=== PATIENT | male | born 1990 | race Caucasian/White ===

== ENCOUNTER 2022-06-10 23:56 | Emergency (ER) | payer OTHER, SELFPAY ==
[2022-06-11] VITALS (9 sets, daily range): BP systolic 110–147; BP diastolic 74–92; PULSE 72–80; RESP 18; TEMP 37.3; O2SAT 93–99; BMI 43.0
--- NOTE | 2022-06-11 00:34 | DI.US.S_ITS ---
PROCEDURE: US ABDOMEN LIMITED INDICATIONS: RUQ US eval for GB pathology TECHNIQUE: Real-time focused scanning was performed of the abdomen, with image documentation. COMPARISON: None. FINDINGS: Evaluation limited by body habitus. The liver demonstrates increased no focal mass lesions. There is increased parenchymal echogenicity compatible with fatty infiltration. The gallbladder demonstrates biliary sludge and echogenic gallstones. Gallbladder wall thickness measures up to 0.3 cm, at the upper limits of normal. No pericholecystic fluid. No intra or extrahepatic biliary ductal dilatation. Visualized pancreas appears unremarkable sonographically. IMPRESSION: 1. Cholelithiasis with borderline wall thickening but no pericholecystic fluid. The findings are equivocal for acute cholecystitis and correlation is recommended clinically. Dictated by: Augusto Matos M.D. on 06/11/2022 at 2:37 Approved by: Augusto Matos M.D. on 06/11/2022 at 2:39
--- NOTE | 2022-06-11 00:34 | ED_ITS ---
HPI - General Adult General Chief complaint: Abdominal Pain Stated complaint: pain in rt abd moving to back, vomiting Time Seen by Provider: 06/11/22 00:07 Source: patient Mode of arrival: Ambulatory Limitations: no limitations History of Present Illness HPI narrative: Patient is a 32-year-old male who is here for evaluation of right upper quadrant abdominal pain that started last evening. No fevers. He has vomited. It has improved somewhat since the onset. It did start after he was eating. Denies any fevers. No change in bowel habits. No urinary symptoms. Has had his appendix removed no other abdominal surgeries. Has never had symptoms like this in the past. Related Data Allergies Allergy/AdvReac Type Severity Reaction Status Date / Time cephalexin [From Keflex] Allergy Verified 06/11/22 00:07 Review of Systems Constitutional Constitutional: Reports system reviewed and no additional complaints, except as documented Gastrointestinal Gastrointestinal: Reports system reviewed and no additional complaints, except as documented Genitourinary Genitourinary: Reports system reviewed and no additional complaints, except as documented Integumentary/Breasts Skin/Breast: Reports system reviewed and no additional complaints, except as documented Hematologic/Lymphatic On Anticoagulants: No Patient History Surgical History Hx of appendectomy Social History Smoking Status: Never smoker Smoking Status: Never smoker alcohol intake frequency: 0-2 drinks per day Substance Use Type: does not use Exam Initial Vital Signs Initial Vital Signs: Vital Signs Pulse Rate 80 06/11/22 00:04 Blood Pressure 147/89 H 06/11/22 00:04 Pulse Oximetry 98 06/11/22 00:04 HENTN Head: normal to inspection and normocephalic Resp Effort & Inspection: normal respiratory effort Auscultation: clear to auscultation bilaterally Cardio Rate: regular rate GI Inspection: normal to inspection Palpation: soft, No guarding and tender (Right upper quadrant with positive Kearney's sign) Back/Spine/Pelvis Back: No CVA tenderness Skin General: no rashes or lesions noted Neuro General: patient alert, patient awake and moves all extremities Extrem General: normal to inspection and capillary refill normal Course Orders Ordered: ED Orders 06/11/22 00:32 Complete Blood Count AUTO DIFF Stat Comprehensive Metabolic Panel Stat Lipase Stat 06/11/22 00:34 US abdomen limited Stat Discontinued Medications Hydrocodone Bitart/Acetaminophen (Hydrocodone/Acet 5/325 Prepack) 1 bottle MISC SEEINSTR ONE Stop: 06/11/22 02:49 Last Admin: 06/11/22 03:13 Dose: 1 bottle Ondansetron HCl (Ondansetron 4 Mg Odt) 4 mg PO NOW PRN PRN Reason: Nausea And Vomiting Ondansetron HCl (Ondansetron 4 Mg/2 Ml Inj) 4 mg IV NOW PRN PRN Reason: Nausea And Vomiting Ondansetron HCl (Ondansetron 4 Mg Odt Prepack) 1 bottle MISC SEEINSTR ONE Stop: 06/11/22 02:49 Last Admin: 06/11/22 03:13 Dose: 1 bottle Vital Signs Vital signs: Vital Signs - 8 hr 06/11/22 00:07 06/11/22 00:04 06/11/22 00:04 Temperature 99.1 F Pulse Rate 79 80 Respiratory Rate 18 Blood Pressure 147/84 H 147/89 H Pulse Oximetry 98 98 Oxygen Delivery Method Room Air 06/11/22 00:51 06/11/22 00:52 06/11/22 00:52 Temperature Pulse Rate 74 Respiratory Rate Blood Pressure 140/89 Pulse Oximetry 99 98 Oxygen Delivery Method 06/11/22 01:00 06/11/22 01:00 06/11/22 01:30 Temperature Pulse Rate 74 Respiratory Rate Blood Pressure 143/92 H 110/79 Pulse Oximetry 97 Oxygen Delivery Method 06/11/22 01:30 06/11/22 02:00 06/11/22 02:00 Temperature Pulse Rate 72 78 Respiratory Rate Blood Pressure 114/75 Pulse Oximetry 96 95 Oxygen Delivery Method 06/11/22 02:30 06/11/22 03:00 06/11/22 03:00 Temperature Pulse Rate 80 75 Respiratory Rate Blood Pressure 129/74 Pulse Oximetry 93 94 Oxygen Delivery Method Room Air Medical Decision Making Lab Data Lab results reviewed: Yes I reviewed the patient's lab results. 06/11/22 00:32 06/11/22 00:32 Labs: Lab Results 06/11/22 06/11/22 Range/Units 00:32 00:32 WBC 11.8 H (4.5-11.0) X10^3/uL RBC 4.94 (4.5-5.9) X10^6/uL Hgb 14.9 (13.5-17.5) g/dL Hct 43.7 (41-53) % MCV 88.4 (80-100) fL MCH 30.1 (26-34) PG MCHC 34.1 (30-36) % RDW 13.3 (11.6-14.8) % Plt Count 267 (150-400) X10^3/uL Neut % (Auto) 72.3 (50-75) % Lymph % (Auto) 18.9 L (25-40) % [place] % (Auto) 5.1 (3-14) % Eos % (Auto) 2.7 (2-4) % Baso % (Auto) 1.0 (0-2) % Neut # (Auto) 8500 H (2843-2255) /uL Lymph # (Auto) 2200 (8254-6932) /uL [place] # (Auto) 600 (0-900) /uL Eos # (Auto) 300 (0-450) /uL Baso # (Auto) 100 (0-100) /uL Sodium 139 (137-145) mmol/L Potassium 3.9 (3.4-5.1) mmol/L Chloride 103 (98-107) mmol/L Carbon Dioxide 27 (22-32) mmol/L BUN 13 (9-20) mg/dL Creatinine 0.74 (0.66-1.25) mg/dL Estimated GFR > 60 (>60) mL/min BUN/Creatinine Ratio 17.6 (6-22) Glucose 132 H (70-100) mg/dL Calcium 9.2 (8.4-10.2) mg/dL Total Bilirubin 0.5 (0.2-1.3) mg/dL AST 41 (17-59) IU/L ALT 80 H (<50) IU/L Alkaline Phosphatase 96 (38-126) U/L Total Protein 8.0 (6.3-8.2) g/dL Albumin 4.6 (3.5-5.0) g/dL Globulin 3.4 (1.7-4.1) g/dL Albumin/Globulin Ratio 1.4 (1.0-2.8) Lipase 54 (23-300) U/L Urine Dip Bedside Urine Glucose Negative Bedside Urine Bilirubin - Negative Bedside Urine Ketone - Negative Urine Specific [place] 1.030 Bedside Urine Occult Blood - Negative Bedside Urine pH 6.0 Bedside Urine Protein - Negative Bedside Urine Urobilinogen - Negative Bedside Urine Nitrite - Negative Bedside Urine Leukocytes - Negative Esterase Point of care testing: Urine Dip Bedside Urine Glucose Negative Bedside Urine Bilirubin - Negative Bedside Urine Ketone - Negative Urine Specific [place] 1.030 Bedside Urine Occult Blood - Negative Bedside Urine pH 6.0 Bedside Urine Protein - Negative Bedside Urine Urobilinogen - Negative Bedside Urine Nitrite - Negative Bedside Urine Leukocytes - Negative Esterase Imaging Data US - abdomen: Radiologist's Impression: PROCEDURE: US ABDOMEN LIMITED ? INDICATIONS:? RUQ US eval for GB pathology ? TECHNIQUE:? Real-time focused scanning was performed of the abdomen, with image documentation.? ? COMPARISON:? None. ? FINDINGS:? ? Evaluation limited by body habitus. ? The liver demonstrates increased no focal mass lesions.? There is increased parenchymal echogenicity compatible with fatty infiltration. ? The gallbladder demonstrates biliary sludge and echogenic gallstones.? Gallbladder wall thickness measures up to 0.3 cm, at the upper limits of normal.? No pericholecystic fluid. ? No intra or extrahepatic biliary ductal dilatation. ? Visualized pancreas appears unremarkable sonographically. ? ? IMPRESSION:? ? 1. Cholelithiasis with borderline wall thickening but no pericholecystic fluid.? The findings are equivocal for acute cholecystitis and correlation is recommended clinically. MDM Narrative Medical decision making narrative: Patient does have an elevation in his ALT but his lipase and AST are unrem arkable. His physical exam is consistent with biliary colic. His right upper quadrant ultrasound does show cholelithiasis without definitive evidence of acute cholecystitis. Patient states that his symptoms have now completely resolved. Will discharge patient home with medications for symptom control and instructions to follow-up with general surgery. He was given return precautions and follow-up instructions. He expressed understanding and agreement. Discharge Plan Departure Patient Disposition: Home Clinical Impression: Cholelithiasis Instructions: Gallstones (Alternative Therapy), DI for Gallstones Activity Restrictions/Additional Instructions: I do recommend that you eat a bland diet for the next couple days. Contact the general surgery department at the number provided below for follow-up. Return to the emergency department for any new or worsening symptoms. Referrals: Cedrick Mosher MD [Physician] - Stand Alone Forms: Patient Portal/API
[2022-06-11 00:44] LABS: Add Manual Diff / Slide Review NO; Basophils Absolute Auto 100 /uL (0-100); Eosinophils Absolute Auto 300 /uL (0-450); Eosinophils Percent Auto 2.7 % (2-4); Hematocrit 43.7 % (41-53); Hemoglobin 14.9 g/dL (13.5-17.5); Lymphocytes Absolute Auto 2200 /uL (1100-4500); Lymphocytes Percent Auto 18.9 % (25-40); Mean Corpuscular HGB Conc 34.1 % (30-36); Mean Corpuscular Hemoglobin 30.1 PG (26-34); Mean Corpuscular Volume 88.4 fL (80-100); Monocytes Absolute Auto 600 /uL (0-900); Monocytes Percent Auto 5.1 % (3-14); Neutrophils Absolute Auto 8500 /uL (1500-7000); Neutrophils Percent Auto 72.3 % (50-75); Platelet Count 267 X10^3/uL (150-400); Red Blood Cell Count 4.94 X10^6/uL (4.5-5.9); Red Cell Distribution Width 13.3 % (11.6-14.8); White Blood Cell Count 11.8 X10^3/uL (4.5-11.0)
[2022-06-11 00:55] LABS: Alanine Aminotransferase 80 IU/L (<50); Albumin 4.6 g/dL (3.5-5.0); Albumin Globulin Ratio 1.4 (1.0-2.8); Alkaline Phosphatase 96 U/L (38-126); Aspartate Aminotransferase 41 IU/L (17-59); BUN Creatinine Ratio 17.6 (6-22); Bilirubin Total 0.5 mg/dL (0.2-1.3); Blood Urea Nitrogen 13 mg/dL (9-20); Calcium 9.2 mg/dL (8.4-10.2); Carbon Dioxide 27 mmol/L (22-32); Chloride 103 mmol/L (98-107); Estimated Glomerular Filt Rate > 60 mL/min (>60); Globulin 3.4 g/dL (1.7-4.1); Glucose 132 mg/dL (70-100); HEMOLYSIS 25 (0-50); Lipase 54 U/L (23-300); Potassium 3.9 mmol/L (3.4-5.1); Sodium 139 mmol/L (137-145)
--- NOTE | 2022-06-11 01:05 | PC.NURSE ---
Pt declines zofran at this time.
[2022-06-11] MEDS: HYDROCODONE/ACET 5/325 PREPACK 1 BOTTLE MISC (03:13)
[2022-06-11] MEDS: ONDANSETRON 4 MG ODT PREPACK 1 BOTTLE MISC (03:13)
== END 2022-06-11 03:21 | disposition home or self-care (01) ==
PROVIDERS: Emergency Provider Emergency Medicine
DX: K80.20 Calculus of gallbladder without cholecystitis without obstruction (principal)
CPT/HCPCS: 36415; 76705; 80053; 81003; 83690; 85025; 99284

== ENCOUNTER 2023-11-16 08:01 | Emergency (ER) | payer OTHER, SELFPAY ==
[2023-11-16 08:13] VITALS: BP 140/96; PULSE 71; RESP 17; TEMP 36.6; O2SAT 100; BMI 38.7
--- NOTE | 2023-11-16 08:27 | ED.GENADULT ---
HPI - General Adult General Chief complaint: Abdominal Pain Stated complaint: Severe Upper stomach pain Time Seen by Provider: 11/16/23 08:09 Source: patient Mode of arrival: Ambulatory History of Present Illness HPI narrative: Patient is a 33-year-old male who was seen here by myself in the emergency department approximately 4 months ago for right upper quadrant abdominal pain. Was diagnosed with cholelithiasis. Had relatively unremarkable LFTs. Discharged home with instructions to change diet and also follow-up with general surgery. He states he was asymptomatic until about 1-2 months ago when he started to have recurrence of the symptoms specifically with eating. His current symptoms started last evening. Describes pain in his upper abdomen. Nausea but no vomiting. He has had quite a bit of weight loss over the past several months. No change in bowel habits. No urinary symptoms. No fevers. Related Data Home Medications Medication Instructions Recorded Confirmed pantoprazole 40 mg tablet,delayed 40 mg PO DAILY 11/16/23 11/16/23 release (Protonix) Previous Rx's Medication Instructions Recorded hydrocodone 5 mg-acetaminophen 325 1 tab PO Q4-6H PRN pain #14 tabs 11/16/23 mg tablet ondansetron 4 mg disintegrating 4 mg PO Q6H PRN nausea and 11/16/23 tablet vomiting #14 tabs Allergies Allergy/AdvReac Type Severity Reaction Status Date / Time cephalexin [From Keflex] Allergy Verified 11/16/23 08:23 Review of Systems Review of Systems Narrative: See HPI Patient History Surgical History Hx of appendectomy Social History Smoking Status: Never smoker Smoking Status: Never smoker alcohol intake frequency: a few times a week Substance Use Type: does not use Exam Initial Vital Signs Initial Vital Signs: Vital Signs Temperature 97.9 F 11/16/23 08:13 Pulse Rate 71 11/16/23 08:13 Respiratory Rate 17 11/16/23 08:13 Blood Pressure 140/96 H 11/16/23 08:13 Pulse Oximetry 100 11/16/23 08:13 Oxygen Delivery Method Room Air 11/16/23 08:13 Const General: cooperative, comfortable and No ill appearing HENID Head: normal to inspection and normocephalic Resp Effort & Inspection: normal respiratory effort Auscultation: clear to auscultation bilaterally Cardio Rate: regular rate Rhythm: regular rhythm GI Inspection: normal to inspection and non-distended Palpation: soft, No firm, No guarding and tender (Right upper quadrant) Skin General: no rashes or lesions noted Neuro General: patient alert, patient awake and moves all extremities Extrem General: normal to inspection Course Orders Ordered: ED Orders 11/16/23 08:25 Complete Blood Count AUTO DIFF Stat Comprehensive Metabolic Panel Stat Lipase Stat 11/16/23 08:27 US abdomen limited Stat Discontinued Medications Sodium Chloride (Normal Saline 0.9%) 1,000 mls @ 1,000 mls/hr IV BOLUS ONE Stop: 11/16/23 09:26 Last Infusion: 11/16/23 09:42 Dose: Infused Documented By: Admin: 11/16/23 08:53 Dose: 1,000 mls/hr Documented By: KATHI Ketorolac Tromethamine (Ketorolac 30 Mg/Ml Vial) 30 mg IV NOW ONE Stop: 11/16/23 08:28 Last Admin: 11/16/23 08:53 Dose: 30 mg Documented By: KATHI Ondansetron HCl (Ondansetron 4 Mg/2 Ml Inj) 4 mg IV NOW ONE Stop: 11/16/23 08:28 Last Admin: 11/16/23 08:53 Dose: 4 mg Documented By: KATHI Pantoprazole Sodium (Pantoprazole 40 Mg Vial) 40 mg IV NOW ONE Stop: 11/16/23 08:28 Last Admin: 11/16/23 08:53 Dose: 40 mg Documented By: KATHI Vital Signs Vital signs: Vital Signs - 8 hr 11/16/23 08:13 Temperature 97.9 F Pulse Rate 71 Respiratory Rate 17 Blood Pressure 140/96 H Pulse Oximetry 100 Oxygen Delivery Method Room Air Medical Decision Making Lab Data Lab results reviewed: Yes I reviewed the patient's lab results. 11/16/23 08:25 11/16/23 08:25 Labs: Lab Results 11/16/23 Range/Units 08:25 WBC 11.9 H (4.5-11.0) X10^3/uL RBC 5.04 (4.5-5.9) X10^6/uL Hgb 15.2 (13.5-17.5) g/dL Hct 44.8 (41-53) % MCV 88.9 (80-100) fL MCH 30.1 (26-34) PG MCHC 33.9 (30-36) % RDW 13.1 (11.6-14.8) % Plt Count 273 (150-400) X10^3/uL Neut % (Auto) 88.6 H (50-75) % Lymph % (Auto) 7.3 L (25-40) % [place] % (Auto) 2.8 L (3-14) % Eos % (Auto) 0.7 L (2-4) % Baso % (Auto) 0.6 (0-2) % Neut # (Auto) 87759 H (3658-3009) /uL Lymph # (Auto) 900 L (1164-9291) /uL [place] # (Auto) 300 (0-900) /uL Eos # (Auto) 100 (0-450) /uL Baso # (Auto) 100 (0-100) /uL Sodium 142 (137-145) mmol/L Potassium 4.1 (3.4-5.1) mmol/L Chloride 108 H (98-107) mmol/L Carbon Dioxide 25 (22-32) mmol/L BUN 14 (9-20) mg/dL Creatinine 0.84 (0.66-1.25) mg/dL Estimated GFR > 60 (>60) mL/min BUN/Creatinine Ratio 16.7 (6-22) Glucose 134 H (70-100) mg/dL Calcium 9.8 (8.4-10.2) mg/dL Total Bilirubin 0.6 (0.2-1.3) mg/dL AST 27 (17-59) IU/L ALT 41 (<50) IU/L Alkaline Phosphatase 101 (38-126) U/L Total Protein 8.1 (6.3-8.2) g/dL Albumin 4.8 (3.5-5.0) g/dL Globulin 3.3 (1.7-4.1) g/dL Albumin/Globulin Ratio 1.5 (1.0-2.8) Lipase 57 (23-300) U/L Imaging Data US - abdomen: Radiologist's Impression: PROCEDURE: US ABDOMEN LIMITED INDICATIONS: RUQ pain eval for GB pathology TECHNIQUE: Real-time scanning was performed of the abdominal and retroperitoneal organs, with image documentation. COMPARISON: [facility], US, US ABDOMEN LIMITED, 06/11/2022, 1:34. FINDINGS: Liver: The liver is diffusely hyperechoic without focal lesion. Liver length is not measured. Gallbladder: Gallbladder demonstrates diffuse fairly homogeneous internal echogenicity without wall thickening. [employer] reports at least 2 mobile subcentimeter stones within the sludge which are not well appreciated on the static images. A sonographic Kearney sign was not reported. Biliary ducts: There is no biliary ductal dilation. The common bile duct measures 4 mm in diameter. Pancreas: Visualized portions of the pancreas are sonographically normal. Miscellaneous: No free abdominal fluid. IMPRESSION: Gallbladder sludge without hellen cholecystitis. MDM Narrative Medical decision making narrative: He reports improvement of symptoms but not complete resolution after medications here in the ER. I do have high suspicion that this is biliary colic causing his symptoms given his history. His prior ultrasound shows stones now only sludge and I suspect that he has passed some of the stones. His bilirubin is normal here along with his LFTs. Discussed the case with Dr. Gomes on-call for General surgery. Plan will be to discharge patient home with nausea medication and pain medication. Recommended bland diet. Dr. Gomes will have the general surgery office contact the patient to the beginning of next week to discuss surgical intervention early next week. When patient was given return precautions. She expressed understanding and agreement. Discharge Plan Departure Patient Disposition: Home Clinical Impression: Abdominal pain, Biliary colic Instructions: DI for Biliary Colic Activity Restrictions/Additional Instructions: Don't eat or drink anything after midnight Saturday nit. Office will can you Saturday morning with the possibility of taking your gallbladder on Saturday. Recommend a bland diet. He was the pain medication and nausea medication as needed. Anticipate a call from the general surgery office on Saturday for surgery early next week. Return to the emergency department for new symptoms. Prescriptions: New hydrocodone-acetaminophen 5-325 mg tablet 1 tab PO Q4-6H PRN (Reason: pain) Qty: 14 0RF ondansetron 4 mg tablet,disintegrating 4 mg PO Q6H PRN (Reason: nausea and vomiting) Qty: 14 0RF No Action pantoprazole [Protonix] 40 mg Tablet,Delayed Release (Dr/Ec) 40 mg PO DAILY Referrals: Hannah Gomes MD [Physician] - Stand Alone Forms: Patient Portal/API
[2023-11-16 08:45] LABS: Add Manual Diff / Slide Review NO; Basophils Absolute Auto 100 /uL (0-100); Basophils Percent Auto 0.6 % (0-2); Eosinophils Absolute Auto 100 /uL (0-450); Eosinophils Percent Auto 0.7 % (2-4); Hematocrit 44.8 % (41-53); Hemoglobin 15.2 g/dL (13.5-17.5); Lymphocytes Absolute Auto 900 /uL (1100-4500); Lymphocytes Percent Auto 7.3 % (25-40); Mean Corpuscular HGB Conc 33.9 % (30-36); Mean Corpuscular Hemoglobin 30.1 PG (26-34); Mean Corpuscular Volume 88.9 fL (80-100); Monocytes Absolute Auto 300 /uL (0-900); Monocytes Percent Auto 2.8 % (3-14); Neutrophils Absolute Auto 10500 /uL (1500-7000); Neutrophils Percent Auto 88.6 % (50-75); Platelet Count 273 X10^3/uL (150-400); Red Blood Cell Count 5.04 X10^6/uL (4.5-5.9); Red Cell Distribution Width 13.1 % (11.6-14.8); White Blood Cell Count 11.9 X10^3/uL (4.5-11.0)
[2023-11-16 08:51] LABS: Alanine Aminotransferase 41 IU/L (<50); Albumin 4.8 g/dL (3.5-5.0); Albumin Globulin Ratio 1.5 (1.0-2.8); Alkaline Phosphatase 101 U/L (38-126); Aspartate Aminotransferase 27 IU/L (17-59); BUN Creatinine Ratio 16.7 (6-22); Bilirubin Total 0.6 mg/dL (0.2-1.3); Blood Urea Nitrogen 14 mg/dL (9-20); Calcium 9.8 mg/dL (8.4-10.2); Carbon Dioxide 25 mmol/L (22-32); Chloride 108 mmol/L (98-107); Estimated Glomerular Filt Rate > 60 mL/min (>60); Globulin 3.3 g/dL (1.7-4.1); Glucose 134 mg/dL (70-100); HEMOLYSIS < 15 (0-50); Lipase 57 U/L (23-300); Potassium 4.1 mmol/L (3.4-5.1); Sodium 142 mmol/L (137-145); Total Protein 8.1 g/dL (6.3-8.2)
[2023-11-16] MEDS: SODIUM CHLORIDE 0.9% 1,000 ML 1000 ML IV (08:53)
[2023-11-16] MEDS: ONDANSETRON 4 MG/2 ML INJ IV (08:53)
[2023-11-16] MEDS: KETOROLAC 30 MG/ML VIAL IV (08:53)
[2023-11-16] MEDS: PANTOPRAZOLE 40 MG VIAL IV (08:53)
[2023-11-16 10:27] VITALS: BP 142/87; PULSE 81; RESP 16; TEMP 36.6; O2SAT 98
== END 2023-11-16 10:28 | disposition home or self-care (01) ==
PROVIDERS: Emergency Provider Emergency Medicine
DX: K80.50 Calculus of bile duct without cholangitis or cholecystitis without obstruction (principal); R10.11 Right upper quadrant pain
CPT/HCPCS: 36415; 76705; 80053; 83690; 85025; 96361; 96374; 96375; 99284; J1885; J2405; J2470

== ENCOUNTER 2023-11-19 09:50 | Day surgery (SDC) | payer OTHER, BC, SELFPAY ==
[2023-11-19] VITALS (9 sets, daily range): BP systolic 120–164; BP diastolic 77–99; PULSE 60–85; RESP 14–20; TEMP 36.2–37; O2SAT 92–98; BMI 38.7
--- NOTE | 2023-11-19 | PATH_ITS ---
[facility] Accession Number: [id number] No. of containers..01 Tissue . 01 Material submitted: . gallbladder - GALLBLADDER . 01 Diagnosis: GALLBLADDER: Acute and chronic cholecystitis with cholelithiasis. No dysplasia or malignancy identified. [facility] 11/22/2023 1338 Local . 01 Electronically signed: . Augusto Lindsey MD, Pathologist NPI- [id number] . 01 Gross description: . Received in formalin with two patient identifiers and gallbladder, is a mayorga to brown disrupted gallbladder, 10.7 x 4.3 x 3.6 cm. The cystic duct margin is inked blue, and no pericystic lymph node is identified. The lumen contains multiple yellow bosselated calculi measuring 0.8 cm in greatest dimension admixed with dark green mucoid bile. The mucosa is green and velvety with yellow areas of discoloration, and no polyps or lesions identified. The sin average 0.5 cm thick. [employer] Worker sections to include the presumed cystic duct margin are submitted in A1. ([id number]) /MRV 11/22/2023 1338 Local . 01 Pathologist provided ICD-10: K80.12 . 01 CPT . 726079 Specimen Comment: A courtesy copy of this report has been sent to [phone] Performed at: [address] [address], [place], [place] [id number] MD Augusto Lindsey MD Phone: [phone]
--- NOTE | 2023-11-19 11:33 | P.HP_ITS ---
History of Present Illness History of Present Illness Date Patient Seen: 11/19/23 Time Patient Seen: 11:33 Chief complaint: Lap Raghu Narrative: Several months of biliary colic, had some success with low fat diet. Now having longer episodes that include nausea and vomiting. RUQ pain, sharp, with radiation to the back. US confirms gallstones. [facility] Surgical History Hx of appendectomy Social History household members: spouse Smoking Status: Never smoker alcohol intake: current Meds Home Medications and Allergies Home Medications Medication Instructions Recorded Confirmed Type hydrocodone 5 mg-acetaminophen 325 1 tab PO Q4-6H PRN pain #14 tabs 11/16/23 11/19/23 Rx mg tablet ondansetron 4 mg disintegrating 4 mg PO Q6H PRN nausea and 11/16/23 11/19/23 Rx tablet vomiting #14 tabs pantoprazole 40 mg tablet,delayed 40 mg PO DAILY 11/16/23 11/19/23 History release (Protonix) Allergies Allergy/AdvReac Type Severity Reaction Status Date / Time cephalexin [From Keflex] Allergy Verified 11/19/23 10:14 Review of Systems Review of Systems ROS: Yes All systems reviewed with the patient and are negative except as otherwise documented Exam Vital Signs (past 8 hours): - 11/19/23 10:21 Temperature 98.6 F Pulse Rate 83 Respiratory Rate 17 Blood Pressure 120/82 Pulse Oximetry 98 Oxygen Delivery Method Room Air Oxygen Delivery Method Room Air Const General: cooperative and healthy appearing [facility] Head: normal to inspection, normocephalic and atraumatic Eyes General: appearance normal, both eyes and all related structures Sclera: sclerae normal Neck Neck: trachea midline Chest Chest: normal inspection of the chest Resp Effort & Inspection: normal respiratory effort and able to speak in complete sentences Cardio Rate: regular rate Rhythm: regular rhythm GI Palpation: soft and No tender Skin General: turgor normal and No atrophy Neuro General: patient alert, patient awake and patient oriented x3 Cognition: normal cognition Speech: speech normal Psych Appearance: grossly normal Mental Status: mental status grossly normal Affect: normal affect Judgment: judgment good Assessment & Plan Assessment & Plan narrative: Biliary colic Plan: Lap raghu Time-Based Coding :: [TOTAL MINUTES] spent with patient and on the chart (including review of chart, obtaining history, exam, reviewing outside data, placing orders, documenting exam and treatment plan, and counseling patient) on [DATE].
[2023-11-19] MEDS: CEFAZOLIN 2 GM/100 ML PREMIX 100 ML IV (12:01)
--- NOTE | 2023-11-19 12:12 | SUR.OPER ---
Supine on padded OR bed, head on pillow, arms secured on padded arm boards at <90 degrees abduction, legs uncrossed, safety belt at thigh, tape over blanket over lower legs.
[2023-11-19] MEDS: BUPIVACAINE 0.5% (PF) 30 ML, EPINEPHrine 0.15 MG INJ (12:20)
--- NOTE | 2023-11-19 13:04 | PM.OP.1 ---
Operative Date/Time/Diagnoses Date of procedure: 11/19/23 Time of procedure: 13:04 Pre-op diagnosis: Biliary colic Post-op diagnosis: same Procedure & Clinicians Procedure: Laparoscopic cholecystectomy Same procedure as scheduled: Yes Indications: Biliary colic Surgeon: Hannah Gomes [employer] Provider: Deandre Mckenzie Anesthesia Type: General and Local Operative Notes Findings: Acute on chronic cholecystitis Closure Type: primary Specimen(s): other (Gallbladder) Estimated Blood Loss (mL): 30 Blood products transfused: none Procedure in detail: Preop diagnosis: Biliary colic Postop diagnosis: Acute on chronic cholecystitis Operative procedure: Laparoscopic cholecystectomy Surgeon: Eugenia Gomes MD apartment community assistant manager: IVAN Bertrand Findings: Acute and chronic cholecystitis Procedure: Patient placed in a supine position. Prepped and draped in sterile fashion to expose his abdomen. Infraumbilical port site was placed using open technique a 12 mm port. Insufflation began all other ports were placed under direct vision including a 10 mm port in the midepigastrium and 2 5 mm ports in the right lateral abdomen. Gallbladder was decompressed, adhesions were taken down before could be grasped and pushed cephalad for exposure. With great effort cystic duct was identified and dissected free. Clipped once distally twice proximally and transected. Cystic artery was identified clipped once distally once proximally and transected. Gallbladder was removed the fossa bed with electrocautery and blunt dissection. We had spillage of bile and sludge which was addressed at the end of the procedure and throughout the procedure suctioned and irrigation. Gallbladder was placed into an Endo-Catch bag and pulled through the infraumbilical port site having to widen the port site due to the size of the gallbladder itself. Spillage of bile at the skin which was irrigated to a clear return. I re-examined the abdomen and performed further irrigation. A Surgicel netting was placed into the fossa bed for better hemostasis. I then removed all ports and began closure. Closure consisted of interrupted 0 Vicryl for fascial closure of the infraumbilical port site. Skin was closed with a running 4-0 Monocryl. Steri-Strips and sterile dressings were placed. Patient was awakened, extubated, taken to recovery room stable condition. Needle, instrument, sponge counts were correct. Specimen: Gallbladder Blood loss: 30 mL Complications: none Post-operative Condition: stable Disposition: PACU
[2023-11-19] MEDS: fentaNYL 100 MCG/2 ML INJ IV (13:36)
[2023-11-19] MEDS: hydrOXYzine 50 MG/ML INJ IM (13:36)
[2023-11-19] MEDS: ONDANSETRON 4 MG/2 ML INJ IV (13:36)
[2023-11-19] MEDS: ACETAMINOPHEN IV 1,000 MG/100 ML VIAL 400 MG IV (13:36)
[2023-11-19] MEDS: OXYCODONE IR 5 MG TABLET PO ×2 (13:49→14:06)
[2023-11-19] MEDS: LACTATED RINGERS 1,000 ML 120 ML IV (13:50)
== END 2023-11-19 15:05 | disposition home or self-care (01) ==
PROVIDERS: PCP Family Medicine; Referring Provider Surgery; Visit Provider Surgery
PROC: 0FT44ZZ Resection of Gallbladder, Percutaneous Endoscopic Approach (ICD-10-PCS; CPT 47562; principal; 2023-11-19 11:45)
DX: K80.12 Calculus of gallbladder with acute and chronic cholecystitis without obstruction (principal)
CPT/HCPCS: 47562; J0136; J0171; J0330; J0690; J1170; J2250; J2405; J2704; J3010; J3410; J3490